=== PATIENT | female | born 1980 | race American Indian/Alaskan Native ===

== ENCOUNTER 2021-04-01 23:57 | Emergency (ER) | payer BC ==
[2021-04-02] MEDS ORDERED: ASPIRIN 325 MG TAB PO ONE (00:38)
[2021-04-02 00:44] VITALS: BP 113/74
[2021-04-02 01:55] LABS: Alanine Aminotransferase 9 units/L (7-56); Albumin 3.9 g/dL (3.9-5); BUN/Creatinine Ratio 10; Blood Urea Nitrogen 9 mg/dL (7-17); Hemolysis Index 0
[2021-04-02 01:56] LABS: Basophils % (Auto) 0.3 % (0.0-1.8); Eosinophils # (Auto) 0.2 K/mm3 (0.0-0.4); Eosinophils % (Auto) 2.5 % (0.0-4.3); Hematocrit 38.2 % (30.3-42.9); Hemoglobin 12.8 gm/dl (10.1-14.3); Lymphocytes # (Auto) 2.2 K/mm3 (1.2-5.4); Lymphocytes % (Auto) 32.6 % (13.4-35.0); Mean Corpuscular HGB Conc 34 % (30-34); Mean Corpuscular Volume 84 fl (79-97); Monocytes # (Auto) 0.5 K/mm3 (0.0-0.8); Monocytes % (Auto) 6.9 % (0.0-7.3); Platelet Count 237 K/mm3 (140-440); Red Blood Count 4.54 M/mm3 (3.65-5.03); Red Cell Distribution Width 13.5 % (13.2-15.2)
--- NOTE | 2021-04-02 02:17 | XRay Report ---
CHEST 2 VIEWS INDICATION / CLINICAL INFORMATION: chest pain. COMPARISON: None available. FINDINGS: SUPPORT DEVICES: None. HEART / MEDIASTINUM: No significant abnormality. LUNGS / PLEURA: No significant pulmonary or pleural abnormality. No pneumothorax. ADDITIONAL FINDINGS: No significant additional findings. IMPRESSION: 1. No acute findings. Signer Name: Alie Kendrick MD Signed: 04/02/2021 2:12 AM Workstation Name: [id number]
--- NOTE | 2021-04-02 05:11 | Emergency Department Report ---
ED Chest Pain HPI - General Chief Complaint: Chest Pain Stated Complaint: LEFT ARM/HAND PAIN Source: patient Mode of arrival: Ambulatory Limitations: No Limitations - History of Present Illness Initial Comments: Patient is a 40-year-old -Citizen Of [place] female with no past medical history and who is not on any control, does not smoke cigarettes and who presents to the ED with complaint of acute onset persistent intermittent left-sided chest wall pain that radiates to the left shoulder and left arm for the last 2 days. Patient states that the left arm feels tingly with numbness intermittently whenever she has chest pain. Patient denies fall, traumatic injury, heavy lifting, shortness of breath, dizziness, syncope, nausea and vomiting, abdominal pain, back pain, neck pain, headache, cough, change in vision or diarrhea, fever and chills. MD Complaint: chest pain (Left-sided), other (Left arm pain) -: Sudden, days(s) (2) Onset: awoke with symptoms Pain Location: left chest Pain Radiation: LUE Severity: mild Severity scale (0 -10): 2 Quality: aching, sharp Consistency: intermittent Improves With: nothing Worsens With: nothing re: nausea. denies: vomting, diaphoresis, dyspnea, sense of impending doom Other Symptoms: denies: cough, fever, syncope, rash, acid taste in mouth, leg swelling, palpitations, burping Treatments Prior to Arrival: none Aspirin use within the Past 7 Days: (0) No - Related Data On Oral Contraceptives: No Previous Rx's Medication Instructions Recorded Last Taken Type Acetaminophen [Tylenol] 500 mg PO Q6HR PRN #30 tablet 04/02/21 Unknown Rx Cyclobenzaprine [Flexeril] 10 mg PO Q8H PRN #24 tablet 04/02/21 Unknown Rx Allergies Allergy/AdvReac Type Severity Reaction Status Date / Time ibuprofen [From Advil] Allergy Unknown Verified 04/02/21 00:44 aspirin AdvReac Unknown Verified 04/02/21 00:44 Heart Score - HEART Score History: Slightly suspicious EKG: Normal Age: < 45 Risk factors: No known risk factors Troponin: < normal limit HEART Score: 0 - EKG Read Time Time EKG Completed: 00:08 EKG Read Time: 00:15 - Critical Actions Critical Actions: 0-3 pts:0.9-1.7%risk of adverse cardiac event.Candidate for discharge ED Review of Systems ROS: Stated complaint: LEFT ARM/HAND PAIN Other details as noted in HPI Constitutional: denies: chills, fever Eyes: denies: eye pain, eye discharge, vision change ENT: denies: ear pain, throat pain Respiratory: denies: cough, shortness of breath, wheezing Cardiovascular: chest pain (Left-sided chest pain that radiates to the left shoulder and left arm). denies: palpitations Endocrine: no symptoms reported Gastrointestinal: denies: abdominal pain, nausea, diarrhea Genitourinary: denies: urgency, dysuria, discharge Musculoskeletal: denies: back pain, joint swelling, arthralgia Skin: denies: rash, lesions Neurological: denies: headache, weakness, paresthesias Psychiatric: denies: anxiety, depression Hematological/Lymphatic: denies: easy bleeding, easy bruising ED Past Medical Hx - Past Medical History Previous Medical History?: No - Surgical History Past Surgical History?: No - Medications Home Medications: Home Medications Medication Instructions Recorded Confirmed Last Taken Type Acetaminophen [Tylenol] 500 mg PO Q6HR PRN #30 tablet 04/02/21 Unknown Rx Cyclobenzaprine [Flexeril] 10 mg PO Q8H PRN #24 tablet 04/02/21 Unknown Rx ED Physical Exam - General Limitations: No Limitations General appearance: alert, in no apparent distress - Head Head exam: Present: atraumatic, normocephalic, normal inspection - Eye Eye exam: Present: normal appearance, PERRL, EOMI Pupils: Present: normal accommodation - ENT ENT exam: Present: normal exam, normal orophraynx, mucous membranes moist, TM's normal bilaterally, normal external ear exam - Neck Neck exam: Present: normal inspection, full ROM - Respiratory Respiratory exam: Present: normal lung sounds bilaterally. Absent: respiratory distress, wheezes, rhonchi, chest wall tenderness, accessory muscle use - Cardiovascular Cardiovascular Exam: Present: regular rate, normal rhythm, normal heart sounds. Absent: systolic murmur, diastolic murmur, rubs, gallop - GI/Abdominal GI/Abdominal exam: Present: soft, normal bowel sounds. Absent: distended, tenderness, guarding, rebound, hyperactive bowel sounds, hypoactive bowel so unds, organomegaly - Extremities Exam Extremities exam: Present: normal inspection, full ROM, normal capillary refill - Back Exam Back exam: Present: normal inspection, full ROM. Absent: tenderness, CVA tenderness (R), CVA tenderness (L), muscle spasm, paraspinal tenderness, vertebral tenderness - Neurological Exam Neurological exam: Present: alert, oriented X3, CN II-XII intact, normal gait, reflexes normal - Psychiatric Psychiatric exam: Present: normal affect, normal mood - Skin Skin exam: Present: warm, dry, intact, normal color. Absent: rash ED Course Vital Signs 04/02/21 00:43 Temperature 98.2 F Pulse Rate 81 Respiratory 16 Rate Blood Pressure 113/74 [Right] O2 Sat by Pulse 100 Oximetry MICH score - Mich Score Age > 65: (0) No Aspirin use within the Past 7 Days: (0) No 3 or more CAD Risk Factors: (0) No 2 or more Angina events in past 24 hrs: (0) No Known CAD with more than 50% Stenosis: (0) No Elevated Cardiac Markers: (0) No ST Deviation Greater than 0.5mm: (0) No MICH Score: 0 ED Medical Decision Making - Lab Data Result diagrams: 04/02/21 01:09 04/02/21 01:09 - EKG Data EKG shows normal: sinus rhythm Rate: normal - EKG Data Interpretation: normal EKG 04/02/21 05:12 EKG shows normal sinus rhythm with a ventricular rate of [address] or T wave abnormalities. - Radiology Data Radiology results: report reviewed, image reviewed [address] [address] XRay Report Signed Patient: DAVID DAMON MR# : [id number] : 1980 Acct:[id number] Age/Sex: 40 / F ADM Date: 04/01/21 Loc: ED Attending Dr: Ordering Physician: SADIE QUIROZ Date of Service: 04/02/21 Procedure(s): XR chest routine 2V Accession Number(s): [id number] cc: SADIE QUIROZ Fluoro Time In Minutes: CHEST 2 VIEWS INDICATION / CLINICAL INFORMATION: chest pain. COMPARISON: None available. FINDINGS: SUPPORT DEVICES: None. HEART / MEDIASTINUM: No significant abnormality. LUNGS / PLEURA: No significant pulmonary or pleural abnormality. No pneumothorax. ADDITIONAL FINDINGS: No significant additional findings. IMPRESSION: 1. No acute findings. Signer Name: Alie Kendrick MD Signed: 04/02/2021 2:12 AM Workstation Name: [id number] Transcribed By: DT Dictated By: Saad Kendrick MD Electronically Authenticated By: Saad Kendrick MD Signed Date/Time: 04/02/21211 DD/ 1 TD/TT: - Medical Decision Making This is a 40-year-old -Citizen Of [place] female with no past medical history and who is not on any control, does not smoke cigarettes and who presents to the ED with complaint of acute onset persistent intermittent left-sided chest wall pain that radiates to the left shoulder and left arm for the last 2 days. Patient states that the left arm feels tingly with numbness intermittently whenever she has chest pain. In the ED, patient is alert and oriented x3 and is not in any distress. EKG shows normal sinus rhythm with a ventricular rate of [address] or T wave abnormalities. Chest x-ray shows no acute cardiopulmonary abnormalities or pneumonitis. Lab test results were reviewed and are all nonactionable. Patient heart score is zero, and patient is PERC negative per Wells criteria. Based on the history and physical exam findings, lab test results, EKG report and imaging reports, and the fact that the patient's has no cardiac risk factors, patient symptoms are likely due to muscle strain of left chest wall or cervical radiculopathy. Patient was therefore discharged home on pain medications and muscle relaxants and advised to follow- up with her primary care physician in 3 to 5 days for reevaluation. Patient was also given a referral to the gis developer on-call Dr. Chand for further evaluation. Patient was advised to contact Dr. Chand's office first thing the morning on Saturday, April 03, 2021 to schedule a follow-up appointment for further evaluation. Patient was otherwise advised return to the ED immediately if symptoms get worse. - Differential Diagnosis ACS; Pneumonia; Costochondritis; Muscle strain Critical care attestation.: If time is entered above; I have spent that time in minutes in the direct care of this critically ill patient, excluding procedure time. ED Disposition Clinical Impression: Acute nonspecific chest pain with low risk of coronary artery disease, Muscle strain of anterior chest wall Disposition: TO HOME OR SELFCARE Is pt being admited?: No Does the pt Need Aspirin: No Condition: Stable Instructions: Chest Pain (ED), Muscle Strain, [id number], Chest Wall Pain, [id number], Nonspecific Chest Pain, Adult, [id number] Additional Instructions: The EKG shows normal sinus rhythm with a ventricular rate of [address] or T wave abnormalities. Chest x-ray shows no acute cardiopulmonary abnormalities or pneumonitis. All lab test results were reviewed and are all nonactionable. You have zero risk factors at this time for cardiac event. Your symptoms are likely due to musculoskeletal muscle strain or cervical radiculopathy. Therefore take pain medication as needed, drink plenty of fluids, follow-up with the primary care physician in 3 to 5 days for reevaluation. Also consider following up with the gis developer Dr. Chand in 2 to 3 days for reevaluation. Contact Dr. Chand's office first thing in the morning on Saturday, April 03, 2021 to schedule a follow-up appointment. Prescriptions: Acetaminophen [Tylenol] 500 mg PO Q6HR PRN #30 tablet PRN Reason: Pain , Severe (7-10) Cyclobenzaprine [Flexeril] 10 mg PO Q8H PRN #24 tablet PRN Reason: Muscle Spasm Referrals: CLAUDIA ALAS MD [Staff Physician] - 3-5 Days ROMI CHAND MD [Staff Physician] - 3-5 Days Time of Disposition: 05:14 Print Language: SURINAMESE
--- NOTE | 2021-04-03 21:02 | Electrocardiograph Report ---
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
== END 2021-04-02 05:38 | disposition home or self-care (01) ==
LOC: ED 23:57
DX: S29.011A Strain of muscle and tendon of front wall of thorax, initial encounter (principal); X58.XXXA Exposure to other specified factors, initial encounter; Y93.89 Activity, other specified; Y92.89 Other specified places as the place of occurrence of the external cause; Y99.8 Other external cause status
CPT/HCPCS: 36415; 71046; 80053; 84484; 85025; 93005